=== PATIENT | female | born 1995 | race Caucasian/White ===

== ENCOUNTER → 2022-03-12 | Outpatient (CLI) | payer MEDICAID, OTHER ==
[2022-03-12 23:51] VITALS: TEMP 98
[2022-03-13 00:31] VITALS: BP 138/89; PULSE 84; RESP 18
--- NOTE | 2022-03-13 00:38 | P.MSEPDOC ---
Presenting Problems - Arrival Data Date of Arrival on Unit: 03/13/22 Time of Arrival on Unit: 23:00 Mode of Transport: Ambulatory - Complaint OB-Reason for Admission/Chief Complaint: Pain Comment: Pt reports umbilical pain rated 5-6/10 on a 0/10 scale Medical History - Information : 6 Para: 4 Term: 1 : 3 Abortions: Spontaneous or Elective: 1 Number of Living Children: 4 - Gestational Age Gestational Age by PEREZ (wks/days): 33 Weeks and 0 Days Review of Systems - Review of Systems Constitutional: No problems Breast: No problems ENT: No problems Cardiovascular: No problems Respiratory: No problems Gastrointestinal: No problems Genitourinary: No problems Musculoskeletal: No problems Neurological: No problems Skin: No problems Vital Signs - Temperature Temperature: 98.0 F Temperature Source: Temporal Artery Scan - Pulse Right Brachial Pulse Rate: 84 Pulse Assessment Method: Pulse Oximetry - Respirations Respiratory Rate: 18 Oxygen Delivery Method: Room Air - Blood Pressure Right Arm Blood Pressure: 138/89 Blood Pressure Mean: 105 Blood Pressure Source: Automatic Cuff Medical Screen Scoring - Cervical Exam Membranes: Intact - Uterine Contractions Intensity: Absent - Assessment - Baby A Heart Rate - NICHD Category: Category II (Indeterminate) NST: Reactive Physician Notification - Physician Notified Physician Notified Date: 03/13/22 Physician Notified Time: 00:00 Physician: Quirino Donald Order Received: Yes (Pt okay to D/C home) - Notification Comment Comment: Dr. Donald on unit. RN gave report. Pt okay to D/C home with follow up in. office with Dr. Horner. Maternal Triage Index - Maternal Triage Index Presenting for scheduled procedure w/no complaint: No - Stat/Priority 1 Stat Priority 1: No - Urgent/Priority 2 Urgent Priority 2: No - Prompt/Priority 3 Prompt Priority 3: No - Non-Urgent/Priority 4 Non-Urgent Priority 4: Yes Criteria Met for Priority 4: Pt is a with PEREZ [birth year] here at 32.6 weeks of gestation with c/o of umbilical pain rated 5-6/10 on a 0/10 scale. Disposition - Disposition OB Disposition: Discharge to home Discharge Date: 03/13/22 Discharge Time: 00:16 I agree with the RN Medical Screening Exam: Yes Case reviewed; plan agreed upon as documented in EMR&OBIX.: Yes Diagnosis: PAIN, UNSPECIFIED
== END | disposition home or self-care (01) ==
LOC: FBPOP 23:28
PROVIDERS: ATTEND Obstetrics & Gynecology
DX: O26.893 Other specified pregnancy related conditions, third trimester (principal); R10.33 Periumbilical pain; Z3A.33 33 weeks gestation of pregnancy
CPT/HCPCS: 59025; 99213

== ENCOUNTER 2022-03-13 00:20 | Emergency (ER) | payer MEDICAID, OTHER ==
[2022-03-13 00:27] VITALS: BP 130/90; PULSE 90; RESP 18; TEMP 97.6
[2022-03-13] MEDS ORDERED: BACITRACIN OINT 1 EACH PACKET TOPICAL ONE (00:55)
--- NOTE | 2022-03-13 01:31 | ED ---
Abdominal Pain HPI - General Chief Complaint: Abdominal Pain Stated Complaint: Abd Pain Time Seen by Provider: 03/13/22 01:10 Source: patient, RN notes reviewed, old records reviewed Mode of arrival: ambulatory Limitations: no limitations - History of Present Illness Initial Comments: 26-year-old female presents to the emergency room with complaints of con umbilical tenderness with a small mass. Patient states that she is 33 weeks and did go to [facility] and they checked the baby and said everything was fine. They recommended she come to the emergency room for ultrasound to rule out periumbilical hernia. Patient has 4 children under the age of 7, states she delivered them all vaginally. She states that she has been nauseated but denies any vomiting or diarrhea. She denies any fevers. States that this tenderness has been there for 2 days. She has had no previous surgeries. -: days(s) (2) Location: periumbilical Radiation: none Severity scale (1-10): 5 Quality: aching Consistency: constant Improves With: nothing Worsens With: other (palpation) Associated Symptoms: denies other symptoms - Related Data Home Medications Medication Instructions Recorded Confirmed Pnv No.95/Ferrous Fum/Folic AC 1 tab PO DAILY 03/12/22 03/12/22 [ Multivitamin Tablet] Allergies Allergy/AdvReac Type Severity Reaction Status Date / Time No Known Allergies Allergy Verified 03/12/22 23:42 Review of Systems ROS Statement: Those systems with pertinent positive or pertinent negative responses have been documented in the HPI. ROS Other: All systems not noted in ROS Statement are negative. Past Medical History Past Medical History: No Reported History History of Any Multi-Drug Resistant Organisms: None Reported Additional Past Surgical History / Comment(s): d&c Past Psychological History: No Psychological Hx Reported Smoking Status: Never smoker Past Alcohol Use History: None Reported Past Drug Use History: None Reported General Exam Limitations: no limitations General appearance: alert, in no apparent distress Head exam: Present: atraumatic Eye exam: Present: normal appearance ENT exam: Present: mucous membranes moist Respiratory exam: Present: normal lung sounds bilaterally. Absent: respiratory distress, accessory muscle use Cardiovascular Exam: Present: regular rate, normal rhythm GI/Abdominal exam: Present: soft, tenderness (periumbilical), mass (periumbilical small mass), other (33 weeks ) Extremities exam: Present: normal capillary refill. Absent: pedal edema Back exam: Present: normal inspection. Absent: tenderness, CVA tenderness (R), CVA tenderness (L), rash noted Neurological exam: Present: alert, oriented X3 Psychiatric exam: Present: normal affect, normal mood Skin exam: Present: warm, dry, normal color. Absent: cyanosis, diaphoretic, petechiae, pallor Course Vital Signs 03/13/22 03/13/22 00:23 01:43 Temperature 97.6 F 97.6 F Pulse Rate 90 90 Respiratory 18 18 Rate Blood Pressure 130/90 130/90 O2 Sat by Pulse 98 98 Oximetry Medical Decision Making - Medical Decision Making Patient presents with 2 days of periumbilical tenderness with a small mass likely periumbilical hernia. Patient denies any vomiting. Is having normal bowel movements. Denies any fevers. She was sent down by [facility] after evaluation. At this time we do not have ultrasound available to confirm that this is a hernia. I did explain to the patient she should return to the emergency room with any new or worsening signs like persistent nausea vomiting, inability to pass gas or have bowel movements. I explained that after multiple births the abdominal wall can get weak which may contribute to risk of hernias. She was advised to follow up with her primary care and [facility] on March 18 as scheduled and return to the emergency room if any new or concerning symptoms. Dr. Medina at bedside to evaluate patient and is agreeable to this plan of care. Disposition Clinical Impression: Abdominal pain Disposition: HOME SELF-CARE Condition: Good Instructions (If sedation given, give patient instructions): Abdominal Pain (ED), Abdominal Pain in (ED) Additional Instructions: Follow-up with your primary care doctor and [facility] as scheduled March 18. Return to the emergency room with any new or concerning symptoms including persistent nausea and vomiting, inability to move bowels, increased pain or fevers. Is patient prescribed a controlled substance at d/c from ED?: No Referrals: Agnieszka Burns MD [Primary Care Provider] - 1-2 days Time of Disposition: 01:34
== END 2022-03-13 01:44 | disposition home or self-care (01) ==
LOC: EC 00:20
DX: O26.893 Other specified pregnancy related conditions, third trimester (principal); R10.33 Periumbilical pain; Z3A.33 33 weeks gestation of pregnancy
CPT/HCPCS: 99283

== ENCOUNTER 2022-03-18 14:18 | Outpatient (CLI) | payer OTHER ==
[2022-03-18 14:55] LABS: Basophils % (A) 0 %; Eosinophils # (A) 0.1 k/uL (0-0.7); Eosinophils % (A) 1 %; HGB 13.1 gm/dL (11.4-16.0); Lymphocytes # (A) 2.5 k/uL (1.0-4.8); Lymphocytes % (A) 24 %; MCH 27.9 pg (25.0-35.0); MCHC 33.5 g/dL (31.0-37.0); MCV 83.3 fL (80.0-100.0); Mean Platelet Volume 9.5; Monocytes # (A) 0.5 k/uL (0-1.0); Monocytes % (A) 5 %; Neutrophils # (A) 6.9 k/uL (1.3-7.7); Neutrophils % (A) 67 %; Platelet Count 270 k/uL (150-450); RBC 4.68 m/uL (3.80-5.40); RDW 14.3 % (11.5-15.5); WBC 10.2 k/uL (3.8-10.6)
[2022-03-18 15:04] LABS: ALT 17 U/L (4-34); AST 24 U/L (14-36); African American GFR (CKD) >90 (>60 ml/min/1.73 sqM); Blood Urea Nitrogen 13 mg/dL (7-17); LDH 407 U/L (313-618); Non-African American GFR(CKD) >90 (>60 ml/min/1.73 sqM); Uric Acid 9.4 mg/dL (3.7-7.4)
[2022-03-18 15:29] LABS: INR 0.8 (<1.2); Partial Thromboplastin Time 22.7 sec (22.0-30.0); Prothrombin Time 9.5 sec (9.0-12.0)
[2022-03-18 16:53] LABS: Appearance,Urine Cloudy (Clear); Bacteria,Urine Few /hpf; Bilirubin,Urine Negative (Negative); Blood,Urine Negative (Negative); Color,Urine Yellow; Glucose,Urine (UA) Negative (Negative); Ketones,Urine Negative (Negative); Leukocyte Esterase,Urine Trace (Negative); Mucus,Urine Few /hpf; Nitrite,Urine Positive (Negative); PH, Urine 6.5 (5.0-8.0); Protein,Urine 2+ (Negative); RBC,Urine 2 /hpf (0-5); Specific Gravity,Urine 1.027 (1.001-1.035); Squamous Epithelial Cell,Urine <1 /hpf (0-4); Urobilinogen,Urine <2.0 mg/dL (<2.0); WBC,Urine 5 /hpf (0-5)
[2022-03-18 16:54] LABS: Creatinine,Urine Random 169.9 mg/dL; Protein/Creatinine Ratio,Urine 0.942
[2022-03-18 18:16] VITALS: BP 157/102; PULSE 95; RESP 16; TEMP 96.6
== END 2022-03-18 18:00 | disposition home or self-care (01) ==
LOC: FBPOP 14:18
PROVIDERS: ATTEND Obstetrics & Gynecology
DX: O13.3 Gestational [pregnancy-induced] hypertension without significant proteinuria, third trimester (principal); Z3A.33 33 weeks gestation of pregnancy
CPT/HCPCS: 59025; 82570; 84156; 82565; 83615; 84450; 84460; 84520; 84550; 85025; 85384; 85610; 85730; 81001; G0463; 99215

== ENCOUNTER 2022-03-23 09:28 | Outpatient (CLI) | payer OTHER ==
[2022-03-23 10:23] VITALS: BP 146/92; PULSE 92; RESP 18; TEMP 97
--- NOTE | 2022-03-25 13:19 | P.MSEPDOC ---
Presenting Problems - Arrival Data Date of Arrival on Unit: 03/23/22 Time of Arrival on Unit: 09:28 Mode of Transport: Ambulatory - Complaint OB-Reason for Admission/Chief Complaint: Decreased Movement Medical History - Information : 6 Para: 4 Term: 4 : 0 Abortions: Spontaneous or Elective: 1 Number of Living Children: 4 - Gestational Age Gestational Age by PEREZ (wks/days): 34 Weeks and 3 Days Review of Systems - Review of Systems Constitutional: No problems Breast: No problems ENT: No problems Cardiovascular: No problems Respiratory: No problems Gastrointestinal: No problems Genitourinary: No problems Musculoskeletal: No problems Neurological: No problems Skin: No problems Vital Signs - Temperature Temperature: 97.0 F Temperature Source: Temporal Artery Scan - Pulse Right Pulse Rate: 92 Pulse Assessment Method: Pulse Oximetry - Respirations Respiratory Rate: 18 Oxygen Delivery Method: Room Air O2 Sat by Pulse Oximetry: 97 - Blood Pressure Right Arm Blood Pressure: 146/92 Blood Pressure Mean: 110 Blood Pressure Source: Automatic Cuff Medical Screen Scoring - Assessment - Baby A Baseline FHR: 150 Heart Rate - NICHD Category: Category I (Normal) NST: Reactive Physician Notification - Physician Notified Physician Notified Date: 03/23/22 Physician Notified Time: 10:06 Physician: Renata Horner Order Received: Yes (d/c home with follow up instructions.) Maternal Triage Index - Maternal Triage Index Presenting for scheduled procedure w/no complaint: No - Stat/Priority 1 Stat Priority 1: No - Urgent/Priority 2 Urgent Priority 2: No - Prompt/Priority 3 Prompt Priority 3: No - Non-Urgent/Priority 4 Non-Urgent Priority 4: Yes Criteria Met for Priority 4: decrease movement. - Scheduled/Requesting Priority 5 Scheduled/Requesting Priority 5: No Disposition - Disposition OB Disposition: Discharge to home Discharge Date: 03/23/22 Discharge Time: 10:11 I agree with the RN Medical Screening Exam: Yes Case reviewed; plan agreed upon as documented in EMR&OBIX.: Yes Diagnosis: DECREASED MOVEMENTS, THIRD TRIMESTER, UNSP
== END 2022-03-23 10:11 | disposition home or self-care (01) ==
LOC: FBPOP 09:28
PROVIDERS: ATTEND Obstetrics & Gynecology
DX: O36.8130 Decreased fetal movements, third trimester, not applicable or unspecified (principal); Z3A.34 34 weeks gestation of pregnancy; Z91.040 Latex allergy status
CPT/HCPCS: 59025; G0463; 99213